=== PATIENT | male | born 1965 | race Caucasian/White ===

== ENCOUNTER → 2020-07-02 | Outpatient (CLI) | payer BC ==
[~2020-07-02] MED LIST: CEPHALEXIN500 M1 PO; DILAUDID 2MG TAB2 MG PO; FLOMAX 0.40.4 MG/CAP PO; MULTIVITAMIN1 TA1 PO; PHENERGAN 25 TA25 MG PO; VITAMIN D32000 IU PO; VITORIN; VYTORIN 10 MG-21 TAB PO
[2020-07-02 11:10] LABS: BASO # 0.1 (0.0-0.2); BASO % 1.3 % (0.0-2.0); EOS # 0.1 (0.0-0.7); EOS % 1.3 % (0-4.0); GRAN # 3.4 (1.4-6.5); GRAN % 60.7 % (42.2-75.2); HEMATOCRIT 42.7 % (42.0-52.0); LYMPH # 1.5 (1.2-3.4); LYMPH % 26.5 % (20.0-51.0); MEAN CELL VOLUME 92 fl (80.0-100.0); MEAN CORPUSCULAR HEMOGLOBIN 30 pg (27.0-31.0); MEAN CORPUSCULAR HGB CONC 33 g/dl (33.0-37.0); MEAN PLATELET VOLUME 9.1 fl (7.4-10.4); MONO # 0.6 (0.1-0.6); PLATELET COUNT 219 K/mm3 (130-400); RED BLOOD COUNT 4.65 M/mm3 (4.20-5.60); REDCELL DISTRIBUTION WIDTH-CV 12.4 % (11.5-14.5)
[2020-07-02 11:20] LABS: ALBUMIN 4.6 gm/dL (3.5-5.0); BILIRUBIN,TOTAL 0.7 mg/dL (0.0-1.0); CALCIUM 9.3 mg/dL (8.4-10.2); CREATININE, serum 0.91 (0.66-1.25); POTASSIUM 4.5 mmol/L (3.4-5.0); TOTAL PROTEIN 8.1 gm/dL (6.4-8.2)
[2020-07-02 11:37] LABS: IRON,SERUM 115 ug/dL (35-150)
[2020-07-02 11:47] LABS: TOTAL IRON BINDING CAPACITY 336 ug/dL (261-462)
[2020-07-02 22:57] LABS: IMMUNOGLOBULIN G 1052 mg/dL (540-1822)
[2020-07-05 12:46] LABS: ANTISMOOTH MUSCLE ANTIBODY Negative (Negative)
== END ==
LOC: COL.RAD 10:20
PROVIDERS: Internal Medicine Medical Oncology
DX: C62.11 Malignant neoplasm of descended right testis (principal); R16.0 Hepatomegaly, not elsewhere classified

== ENCOUNTER → 2021-07-20 | Outpatient (CLI) | payer BC | LOC: COL.RAD 09:06 | DX: C62.11 Malignant neoplasm of descended right testis (principal); R94.5 Abnormal results of liver function studies ==